=== PATIENT | male | born 1950 | race Caucasian/White ===

== ENCOUNTER 2020-10-02 12:04 | Day surgery (SDC) | payer MEDICARE ==
[~2020-10-02] VITALS: Ht 188 cm; Wt 118.0 kg
[2020-10-02] MEDS ORDERED: DIPHENHYDRAMINE 50 MG/ML, 1ML IVPush ONE (12:30)
[2020-10-02] MEDS ORDERED: PLEASE ENTER ALLERGIES MC SCH (12:30)
[2020-10-02] MEDS ORDERED: SODIUM CHLORIDE 0.9% 1,000 ML IV SCH (12:30)
[2020-10-02] MEDS ORDERED: PLEASE ENTER HEIGHT AND WEIGHT MC SCH (12:30)
[2020-10-02] MEDS ORDERED: HYDR-3248 PO (12:36)
[2020-10-02] MEDS ORDERED: METF-754 PO (12:36)
[2020-10-02] MEDS ORDERED: TORS10TA4 PO (12:36)
[2020-10-02] MEDS ORDERED: CARV3.122 PO (12:36)
[2020-10-02] MEDS ORDERED: ASPI-1026 PO (12:36)
[2020-10-02] MEDS ORDERED: TAMS-11 PO (12:36)
[2020-10-02] MEDS ORDERED: ATOR40TA PO (12:36)
[2020-10-02 13:17] LABS: ANION GAP 5 mmol/L (5-15); BASOPHILS % (AUTO) 1 % (0-1); CALCIUM 9.6 mg/dL (8.5-10.1); CHLORIDE 102 mmol/L (98-107); CREATININE 1.04 mg/dL (0.7-1.3); EOSINOPHILS % (AUTO) 3 % (1-7); LYMPHOCYTES % (AUTO) 21 % (22-44); MEAN CORPUSCULAR HEMOGLOBIN 29.8 pg (27.5-34.5); MEAN CORPUSCULAR HGB CONC 33.5 g/dL (33.2-36.2); MEAN PLATELET VOLUME 6.6 fL (7.4-10.4); MONOCYTES % (AUTO) 9 % (2-9); NEUTROPHILS % (AUTO) 67 % (42-75); PLATELET COUNT 351 x10^3/uL (130-400); RED BLOOD COUNT 4.36 x10^6/uL (4.38-5.82); RED CELL DISTRIBUTION WIDTH 16.7 % (9.4-14.8)
[2020-10-02 13:20] LABS: MD NO
[2020-10-02] MEDS ORDERED: DIPHENHYDRAMINE 50 MG/ML, 1ML ONE (13:34)
[2020-10-02] MEDS ORDERED: MIDAZOLAM 1 MG/ML, 2ML ONE (13:43)
[2020-10-02] MEDS ORDERED: FENTANYL PF 100 MCG/2ML ONE (13:43)
== END 2020-10-02 16:16 | disposition home or self-care (01) ==
LOC: CACL 12:04
PROVIDERS: ATTEND Internal Medicine Cardiovascular Disease
DX: R09.02 Hypoxemia (principal); I27.9 Pulmonary heart disease, unspecified; I10 Essential (primary) hypertension; E11.9 Type 2 diabetes mellitus without complications; E78.5 Hyperlipidemia, unspecified; G47.30 Sleep apnea, unspecified; E66.3 Overweight; Z68.35 Body mass index [BMI] 35.0-35.9, adult; Z79.82 Long term (current) use of aspirin; Z79.891 Long term (current) use of opiate analgesic; Z79.899 Other long term (current) drug therapy; Z87.891 Personal history of nicotine dependence; Z99.81 Dependence on supplemental oxygen
CPT/HCPCS: 36415; 80048; 82330; 82803; 82947; 83880; 84132; 84295; 85014; 85025; 93451; C1769; C1894; J1200; J2250; J3010

== ENCOUNTER 2021-01-14 11:56 | Outpatient (CLI) | payer MEDICARE ==
[~2021-01-14 11:56] MED LIST: ASPI-1026 PO; ATOR40TA PO; CARV3.122 PO; HYDR-3248 PO; METF-754 PO; TAMS-11 PO; TORS10TA4 PO
== END 2021-01-14 23:59 | disposition home or self-care (01) ==
LOC: CFH 11:56
PROVIDERS: ATTEND Internal Medicine Cardiovascular Disease
DX: Z02.9 Encounter for administrative examinations, unspecified (principal)